=== PATIENT | male | born 1990 | race Hispanic/Latino ===

== ENCOUNTER 2022-08-16 21:17 | Emergency (ER) | payer SELFPAY ==
[2022-08-16 22:01] VITALS: BP 121/84
[2022-08-16 22:30] VITALS: BP 120/68
[2022-08-16 23:00] VITALS: BP 114/75
[2022-08-16 23:30] VITALS: BP 108/75
[2022-08-17] VITALS: BP 117/73
[2022-08-17 03:13] LABS: HEMATOCRIT 40.4 % (39.0-50.0); HEMOGLOBIN 14.3 g/dl (14.0-18.0); IMMATURE GRANULOCYTES 0.5 % (0.0-5.0); MEAN CELL VOLUME 88.6 fL CALC (80.0-100.0); MEAN CORPUSCULAR HGB 31.4 pG CALC (26.0-32.0); MEAN CORPUSCULAR HGB CONC 35.4 g/dL CAL (32.0-36.0); NEUT# 7.93 thou/uL (1.82-7.42); RED BLOOD COUNT 4.56 mill/uL (4.70-6.10); RED CELL DISTRI WIDTH 12.1 % (11.5-15.5)
[2022-08-17 03:15] LABS: ALBUMIN 4.3 g/dL (3.2-5.0); ALKALINE PHOSPHATASE 73 u/l (38-126); ANION GAP 15 (6-22 (CALC)); BILIRUBIN, TOTAL 0.5 mg/dL (0.0-1.4); BUN 16 mg/dL (9-20); BUN/CREATININE RATIO 25 (12-20 (CALC)); CARBON DIOXIDE 23 mmol/l (22-30); CHLORIDE 105 mmol/l (95-108); CREATININE 0.7 mg/dL (0.7-1.3); ETHYL ALCOHOL 0 mg/dl (0-30); GFR FOR AFR.AMER. > 60 ML/MIN (>=60 (CALC)); GFR OTHER RACES > 60 ML/MIN (>=60 (CALC)); POTASSIUM 3.7 mmol/l (3.5-5.1); SGOT/AST 37 u/l (17-59); SODIUM 140 mmol/l (137-146); TOTAL PROTEIN 7.1 g/dL (6.3-8.2)
[2022-08-17] MEDS ORDERED: ULTRAM50 M1 PO (03:37)
[2022-08-17] MEDS ORDERED: KEFLEX500 MG PO (03:37)
[2022-08-17 04:39] VITALS: BP 117/73
== END 2022-08-17 04:42 | disposition home or self-care (01) | DRG 605 ==
LOC: ED 21:17
PROVIDERS: Emergency Medicine
PROC: 0HQFXZZ Repair Right Hand Skin, External Approach (ICD-10-PCS; principal; 2022-08-16)
PROC: 0HQEXZZ Repair Left Lower Arm Skin, External Approach (ICD-10-PCS; 2022-08-16)
DX: S61.411A Laceration without foreign body of right hand, initial encounter (principal); S51.812A Laceration without foreign body of left forearm, initial encounter; S20.419A Abrasion of unspecified back wall of thorax, initial encounter; X99.9XXA Assault by unspecified sharp object, initial encounter; Y92.008 Other place in unspecified non-institutional (private) residence as the place of occurrence of the external cause